=== PATIENT | female | born 1970 | race Caucasian/White ===

== ENCOUNTER 2018-10-16 14:27 | Outpatient (RCR) | payer OTHER | END 2018-11-05 | disposition home or self-care (01) | LOC: WSOH | DX: S67.22XA Crushing injury of left hand, initial encounter (principal); S57.82XA Crushing injury of left forearm, initial encounter; S60.512A Abrasion of left hand, initial encounter; W23.0XXA Caught, crushed, jammed, or pinched between moving objects, initial encounter; Y92.59 Other trade areas as the place of occurrence of the external cause; Y99.0 Civilian activity done for income or pay; Z87.891 Personal history of nicotine dependence; Z79.899 Other long term (current) drug therapy ==

== ENCOUNTER 2022-03-07 08:11 | Outpatient (RCR) | payer OTHER | END 2022-03-14 | disposition home or self-care (01) | LOC: WSOH | DX: S50.12XD Contusion of left forearm, subsequent encounter (principal); S52.225D Nondisplaced transverse fracture of shaft of left ulna, subsequent encounter for closed fracture with routine healing; Y99.0 Civilian activity done for income or pay; E03.9 Hypothyroidism, unspecified; F41.8 Other specified anxiety disorders ==